=== PATIENT | female | born 1985 | race Caucasian/White ===

== ENCOUNTER 2023-03-22 16:22 | Emergency (ER) | payer MEDICAID, SELFPAY ==
[2023-03-22 16:23] VITALS: BP 118/81; PULSE 100; RESP 18; TEMP 36.1; O2SAT 98; BMI 30.3
--- NOTE | 2023-03-22 16:46 | EX.ED.VIS.EY ---
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 She does not wear glasses or contacts. She denies any significant vision changes. PFSH PFSH Medical History no medical history no medical history Allergy/AdvReac Type Severity Reaction Status Date / Time No Known Allergies Allergy Verified 03/22/23 16:23 ROS ROS ED Constitutional Constitutional ED: Denies chills or fever(s) Eyes Eyes: Reports as per HPI and eye pain ENT ENT ED: Denies ear pain, rhinorrhea or sore throat Neurologic Neurologic: Denies headache(s), paresthesias or weakness EXAM Physical Exam Const Vital Signs: 03/22/23 16:23 Temperature 97 F L Temperature Source Temporal Pulse Rate 100 Respiratory Rate 18 Blood Pressure 118/81 H Blood Pressure Mean 93 Pulse Ox 98 Oxygen Delivery Method Room Air Positive well nourished and well developed General Appearance ED: well developed and NAD HEENT atraumatic; Negative for tenderness Mouth ED: Yes oral and palatal mucosa normal and Yes lips normal Mouth: oral and palatal mucosa normal and lips normal Eyes PERRL and EOMs intact bilaterally Eyes Narrative: Mild diffuse right eye conjunctival injection bulbar not palpebral. Blepharospasm. No foreign body seen. No hyphema, no obvious corneal clouding. Discharge. No bleeding. No obvious signs of globe trauma. Left eye normal. Neck supple Neck Narrative: FROM Neuro oriented x3, CN's II-XII intact bilaterally and gait normal Sensorium / Orientation: alert Skin Lesions: no lesions Rashes: no rashes MDM MDM MDM Narrative Medical decision making narrative: I reviewed the STS for several different sterno products, including the suspected one that appears to contain an ethanol based gel. There is another that contains an ethylene glycol based gel. The SDS for both of these recommend simply just flushing. There would be no pH to check for either 1 of these. Therefore she was given tetracaine after to obtaining visual acuities and profusely irrigating at the eyewash station which helped significantly. Feel much better on reevaluation and discharged with appropriate discharge instructions. Discharge Plan Triage Chief Complaint: Eye Problem ED Provider: Matheus Lopez Dx/Rx/DC Orders Clinical Impression: Chemical injury of right eye Instructions: ED Eye Exposure, Chemical Primary Care Provider: Care Physician,No Primary Referrals: Yoan Barney MD [Med Staff - Active Staff] - 1-2 Days if not improving Disposition Disposition: Home, Self Care
[2023-03-22] MEDS: Tetracaine 0.5% Ophthalmic Bottle 2 DRP RIGHT EYE (17:07)
== END 2023-03-22 18:20 | disposition home or self-care (01) ==
PROVIDERS: Emergency Provider Emergency Medicine; Visit Provider Emergency Medicine
DX: S05.91XA Unspecified injury of right eye and orbit, initial encounter (principal); X58.XXXA Exposure to other specified factors, initial encounter
CPT/HCPCS: 99284